=== PATIENT | female | born 1990 | race Caucasian/White ===

== ENCOUNTER 2018-04-17 04:25 | Inpatient (IN) | payer BC ==
[2018-04-17] MEDS ORDERED: CITRIC ACID/SODIUM CITRATE SOL PO SCH (04:45)
[2018-04-17] MEDS: LACTATED RINGERS 1,000 ML IV SCH ×5 (04:45→18:36)
[2018-04-17] MEDS ORDERED: MORPHINE SULFATE 0.5 MG/ML SOL ONE (06:31)
[2018-04-17] MEDS ORDERED: BUPIVACAINE HCL 0.5% MPF 10 ML SOL ONE (06:32)
[2018-04-17] MEDS ORDERED: CEFAZOLIN SODIUM 1 GM PDS ONE ×2 (06:42→13:00)
[2018-04-17] MEDS ORDERED: OXYTOCIN 10000 MU/ML SOL ONE ×4 (07:03→07:12)
[2018-04-17] MEDS ORDERED: LACTATED RINGERS 1,000 ML with OXYTOCIN 10000 MU/ML 20 MU IV ONE (07:06)
[2018-04-17] MEDS ORDERED: ONDANSETRON HCL 4 MG/2 ML SOL ONE (07:12)
[2018-04-17 07:43] LABS: APPEARANCE,URINE Cloudy; BILIRUBIN,URINE 1+ (NEGATIVE); COLOR,URINE Yellow; GLUCOSE, URINE (UA) NEGATIVE (NEGATIVE); KETONES,URINE TRACE (NEGATIVE); LEUKOCYTE ESTERASE ,URINE TRACE (NEGATIVE); NITRATE,URINE NEGATIVE (NEGATIVE); OCCULT BLOOD,URINE TRACE INTACT (NEG-TRACE); UROBILINOGEN,URINE 0.2 (0.2-1.0 EU)
[2018-04-17] MEDS ORDERED: FLEET ENEMA PR PRN (07:50)
[2018-04-17] MEDS ORDERED: BISACODYL 10 MG SUP PR PRN (07:50)
[2018-04-17] MEDS ORDERED: BENZOCAINE/MENTHOL 1 SPR TOP PRN (07:50)
[2018-04-17] MEDS ORDERED: ONDANSETRON HCL 4 MG/2 ML SOL IV PRN (07:50)
[2018-04-17] MEDS ORDERED: METHYLERGONOVINE MALEATE 0.2 MG TAB PO PRN (07:50)
[2018-04-17] MEDS ORDERED: WITCH HAZEL 1 EA PAD TOP PRN (07:50)
[2018-04-17] MEDS ORDERED: TEMAZEPAM 15MG 15 MG CAP PO PRN (07:50)
[2018-04-17] MEDS ORDERED: DIPHENHYDRAMINE 25 MG CAP PO PRN (07:50)
[2018-04-17 07:52] LABS: ICTOTEST,URINE NEGATIVE (NEGATIVE)
[2018-04-17 08:02] LABS: CRYSTALS 5-7 CA OXALATE (0-3 AVE/HPF); WBC,URINE 15-20 (0-5AV/HPF)
[2018-04-17 08:03] LABS: BACTERIA 2+ (< 1+)
[2018-04-17] MEDS ORDERED: KETOROLAC TROMETHAMINE 30 MG/ML SOL ONE (08:47)
[2018-04-17] MEDS: KETOROLAC TROMETHAMINE 30 MG/ML SOL IV PRN ×2 (08:49→14:37)
[2018-04-17] MEDS: DOCUSATE SODIUM 100 MG SGL PO SCH ×2 (09:45→20:36)
[2018-04-17] MEDS: CEFAZOLIN (PREMIX) 1 GM 1 GM/50 ML SOL IV SCH ×2 (09:49→11:31)
[2018-04-17] MEDS: APAP/HYDROCODONE 325/5 TAB PO PRN ×3 (10:45→23:34)
[2018-04-17] MEDS ORDERED: CEFAZOLIN SODIUM 1 GM PDS 1 GM in SODIUM CHLORIDE 0.9% 50 ML 50 ML IV ONE (13:00)
[2018-04-17] MEDS: IBUPROFEN 600 MG TAB PO PRN (20:36)
[2018-04-18] MEDS: APAP/HYDROCODONE 325/5 TAB PO PRN ×5 (01:11→20:19)
[2018-04-18] MEDS: IBUPROFEN 600 MG TAB PO PRN ×3 (03:58→22:47)
[2018-04-18] MEDS: DOCUSATE SODIUM 100 MG SGL PO SCH ×2 (08:13→20:19)
[2018-04-19] MEDS: APAP/HYDROCODONE 325/5 TAB PO PRN ×3 (01:29→10:48)
[2018-04-19] MEDS: DOCUSATE SODIUM 100 MG SGL PO SCH (08:33)
[2018-04-19] MEDS: IBUPROFEN 600 MG TAB PO PRN (08:33)
[2018-04-19 09:45] VITALS: BP 124/81; PULSE 80; RESP 14; TEMP 97.6; O2SAT 97
== END 2018-04-19 12:15 | disposition home or self-care (01) | DRG 540 ==
LOC: OB 04:25 → UNDOADMIN 04:25
PROVIDERS: ADMIT Family Medicine; ATTEND Family Medicine
PROC: 0U570ZZ Destruction of Bilateral Fallopian Tubes, Open Approach (ICD-10-PCS; 2018-04-17)
PROC: 10D00Z1 Extraction of Products of Conception, Low, Open Approach (ICD-10-PCS; principal; 2018-04-17 06:15)
DX: O82 Encounter for cesarean delivery without indication (principal); O75.82 Onset (spontaneous) of labor after 37 completed weeks of gestation but before 39 completed weeks gestation, with delivery by (planned) cesarean section; Z3A.39 39 weeks gestation of pregnancy; Z37.0 Single live birth
CPT/HCPCS: 36415; 59025; 81001; 85018; 87088; 99001; 99070; J0690; J1885; J2274; J2405; J2590; A6402; A9270-GY